=== PATIENT | male | born 1985 | race Asian ===

== ENCOUNTER 2020-05-24 05:47 | Day surgery (SDC) | payer MEDICAID ==
[2020-05-17 11:34] LABS: BASOPHILS # (AUTO) 0.1 X10'3 (0-0.2); EOSINOPHILS # (AUTO) 0.2 X10'3 (0-0.9); EOSINOPHILS % (AUTO) 3.1 % (0-6); LYMPHOCYTES # (AUTO) 2.4 X10'3 (1.1-4.8); LYMPHOCYTES % (AUTO) 38.7 % (21-51); MEAN CORPUSCULAR HEMOGLOBIN 29.5 PG (27.0-31.0); MEAN CORPUSCULAR HGB CONC 33.3 g/dL (33.0-36.5); MEAN CORPUSCULAR VOLUME 88.5 FL (78-98); MONOCYTES # (AUTO) 0.6 X10'3 (0-0.9); MONOCYTES % (AUTO) 9.3 % (2-12); NEUTROPHILS % (AUTO) 47.9 % (42-75); PRE OP PLATELET COUNT 285 X10'3 (140-440); RED BLOOD COUNT 5.77 X10'6 (4.70-6.10); RED CELL DISTRIBUTION WIDTH 14.2 % (11.5-14.5)
[2020-05-17 11:48] LABS: ALBUMIN 4.4 G/DL (3.4-5.0); ALKALINE PHOSPHATASE 80 IU/L (46-116); BLOOD UREA NITROGEN 19 MG/DL (7-18); BUN/CREATININE RATIO 19.4 (5.4-32.0); CALCIUM 9.2 MG/DL (8.5-10.1); CHLORIDE 103 MMOL/L (99-107); CREATININE 0.98 MG/DL (0.60-1.10); PRE OP ANION GAP 7 (8-16); PRE OP AST 60 U/L (10-37); PRE OP BILIRUB, TOTAL 0.9 MG/DL (0.0-1.0); PRE OP GLUCOSE 98 MG/DL (70-104); PRE OP POTASSIUM 4.2 MMOL/L (3.4-5.1); PRE OP SODIUM 139 MMOL/L (135-145); TOTAL CARBON DIOXIDE 29.3 MMOL/L (24-32); TOTAL PROTEIN 8.6 G/DL (6.4-8.2); eGFR 88 ML/MIN
[2020-05-17 11:51] LABS: PRE OP ALT 140 U/L (30-65)
[~2020-05-24] VITALS: Ht 172.7 cm; Wt 95.3 kg
[2020-05-24] VITALS (9 sets, daily range): BP systolic 116–133; BP diastolic 67–94
[~2020-05-24 05:47] MED LIST: NO HOME MEDS; ceFAZolin 2gm in dextrose, iso 50 ML IV ONE; famotidine 20mg tablet PO ONE; ringers solution, lacted 1,000 ML IV SCH
[2020-05-24] MEDS ORDERED: morphine 4 MG/ML inj SYRINge IV PRN (08:15)
[2020-05-24] MEDS ORDERED: ringers solution, lacted 1,000 ML IV SCH (08:15)
[2020-05-24] MEDS ORDERED: morphine 2 MG/ML inj. syringe IV PRN (08:15)
[2020-05-24] MEDS ORDERED: ondansetron/PF 4mg/2ml inj IV PRN (08:15)
[2020-05-24] MEDS ORDERED: proCHLORperazine 10 MG/2 ml inj IV PRN (08:15)
[2020-05-24] MEDS ORDERED: meperidine/PF 25mg/ml syringe IV PRN ×3 (08:15)
[2020-05-24] MEDS ORDERED: fentaNYL/PF 50MCG/1 ML 2ML syringe ONE ×2 (09:25→10:07)
[2020-05-24] MEDS ORDERED: midazolam 2 mg/2 ml injection ONE (09:25)
[2020-05-24] MEDS ORDERED: propofol inj 20 ML IV ONE (09:26)
[2020-05-24] MEDS ORDERED: ROPIVAcaine 0.5% (5mg/ml) 30ml vial ONE (09:29)
[2020-05-24] MEDS ORDERED: sevoflurane 250ml liquid IH ONE (09:31)
[2020-05-24] MEDS ORDERED: rocuronium 10mg/ml inj IV ONE (10:55)
--- NOTE | 2020-05-24 11:10 | NUR ---
Received from OR via BED, accompanied by Anesthesiologist DR AGUIRRE and report given by Anesthesiolgist. PATIENT A&OX4, DENIES PAIN, V/S WNL, NEUROVASCULAR CHECKS INTACT, 20G PIV LUE, SCD ON, DRESSING TO LEFT KNEE CDI W/ BRACE ELEVATED WITH ICEBAG APPLIED.
--- NOTE | 2020-05-24 12:10 | NUR ---
PATIENT A&OX4, DENIES PAIN, V/S WNL, NEUROVASCULAR CHECKS INTACT, 20G PIV LUE D/C, SCD OFF, DRESSING TO LEFT KNEE CDI W/ BRACE ELEVATED WITH ICEBAG APPLIED. I HAVE REVIEWED D/C INSTRUCTIONS WITH PATIENT AND FAMILY AND THEY HAVE VERBALIZED UNDERSTANDING. PATIENT D/C HOME WITH ALL BELONGINGS AND FAMILY GAVE TRANSPORT HOME.
== END 2020-05-24 12:10 | disposition home or self-care (01) ==
LOC: PAS 05:47
PROVIDERS: ATTEND Orthopaedic Surgery
DX: S86.812A Strain of other muscle(s) and tendon(s) at lower leg level, left leg, initial encounter (principal); I10 Essential (primary) hypertension; E66.9 Obesity, unspecified; Z68.30 Body mass index [BMI] 30.0-30.9, adult; G89.18 Other acute postprocedural pain; Z20.822 Contact with and (suspected) exposure to COVID-19; Z79.899 Other long term (current) drug therapy; Z72.89 Other problems related to lifestyle; X58.XXXA Exposure to other specified factors, initial encounter; Y93.89 Activity, other specified; Y92.89 Other specified places as the place of occurrence of the external cause; Y99.8 Other external cause status
CPT/HCPCS: 27381; 36415; 64447; 76942; 80053; 82948; 85025; 87635; 93005; J2175; J2250; J2704; J3010; J7120; A4618; A6449; A7000; J2795

== ENCOUNTER 2021-02-15 17:41 | Inpatient (IN) | payer MEDICAID ==
[~2021-02-15] VITALS: Ht 172.7 cm; Wt 94.0 kg
[~2021-02-15 17:41] MED LIST changes: -ceFAZolin 2gm in dextrose, iso 50 ML IV ONE; -famotidine 20mg tablet PO ONE; -ringers solution, lacted 1,000 ML IV SCH
--- NOTE | 2021-02-15 17:56 | NUR ---
PT MOTHER DEMIAN [phone] OK TO GIVE INFO TO
[2021-02-15 19:17] LABS: BASOPHILS % (AUTO) 0.5 % (0-1); EOSINOPHILS % (AUTO) 0 % (0-6); HEMATOCRIT 48.7 % (42.0-52.0); HEMOGLOBIN 16.9 g/dl (14.0-17.9); LYMPHOCYTES # (AUTO) 1.1 X10'3 (1.1-4.8); LYMPHOCYTES % (AUTO) 15.7 % (21-51); MEAN CORPUSCULAR HGB CONC 34.6 g/dL (33.0-36.5); MEAN CORPUSCULAR VOLUME 89.5 FL (78-98); MEAN PLATELET VOLUME 7.5 FL (7.4-10.4); MONOCYTES # (AUTO) 0.6 X10'3 (0-0.9); MONOCYTES % (AUTO) 8.7 % (2-12); NEUTROPHILS # (AUTO) 5.2 X10'3 (1.8-7.7); NEUTROPHILS % (AUTO) 75.1 % (42-75); PLATELET COUNT 268 X10'3 (140-440); RED BLOOD COUNT 5.44 X10'6 (4.70-6.10); RED CELL DISTRIBUTION WIDTH 13.9 % (11.5-14.5); WHITE BLOOD COUNT 6.9 X10'3 (4.5-11.0)
[2021-02-15 19:30] LABS: D-DIMER 0.94 MG/L FEU (0-0.50)
[2021-02-15] MEDS ORDERED: REMDESIVIR INJ 200 MG in normal saline 100ml IV soln 60 ML IV ONE (20:15)
[2021-02-15 20:26] LABS: ALANINE AMINOTRANSFERASE 169 U/L (12-78); ALBUMIN 3.6 G/DL (3.4-5.0); ALBUMIN/GLOBULIN RATIO 0.7 (1.1-1.5); ALKALINE PHOSPHATASE 91 IU/L (46-116); ANION GAP 13 (8-16); ASPARTATE AMINO TRANSFERASE 158 U/L (10-37); BLOOD UREA NITROGEN 24 MG/DL (7-18); BUN/CREATININE RATIO 17.6 (5.4-32.0); CALCIUM 8.8 MG/DL (8.5-10.1); CHLORIDE 101 MMOL/L (99-107); CREATININE 1.36 MG/DL (0.60-1.10); GLUCOSE 102 MG/DL (70-104); POTASSIUM 4.5 MMOL/L (3.5-5.1); SODIUM 140 MMOL/L (135-145); TOTAL CARBON DIOXIDE 26.5 MMOL/L (24-32); TOTAL PROTEIN 8.7 G/DL (6.4-8.2); eGFR 60 ML/MIN
[2021-02-15 20:36] LABS: TROPONIN I < 0.04 NG/ML (0.0-0.05)
[2021-02-15] MEDS ORDERED: ondansetron/PF 4mg/2ml inj IV PRN (22:00)
[2021-02-15] MEDS ORDERED: acetaminophen 325mg tablet PO PRN (22:00)
[2021-02-15] MEDS ORDERED: magnesium hydroxide 30ml (MOM) UD suspension PO PRN (22:00)
[2021-02-15] MEDS ORDERED: mag hydrox/Alum hydrox/simeth 30ml oral suspension PO PRN (22:00)
[2021-02-16] MEDS: normal saline 1000ml 1,000 ML IV SCH (00:31)
[2021-02-16] MEDS: enoxaparin 60mg/0.6ml syringe SUBCUT SCH ×2 (00:31→07:49)
[2021-02-16 01:45] VITALS: BP 113/68
--- NOTE | 2021-02-16 01:45 | NUR ---
PT ARRIVED FROM ER. PT AMBULATED TO THE BED FROM [facility]. PT HAS BEEN ORIENTED TO THE ROOM AND CALL LIGHT GIVEN. O2 94% AT 6L. RECEIVED REPORT FROM BUSTER GUERRERO PRIOR TO ARRIVAL.
[2021-02-16] MEDS: dexamethasone 4mg/ml inj IV SCH ×4 (02:05→19:48)
[2021-02-16 06:00] VITALS: BP 106/63
--- NOTE | 2021-02-16 06:20 | NUR ---
RECEIVED REPORT FROM BUSTER STINSON
--- NOTE | 2021-02-16 06:35 | NUR ---
Problems reprioritized. Patient report given, questions answered & plan of care reviewed with BUSTER ANSARI.
[2021-02-16] MEDS: metoprolol tartrate 12.5mg (1/2 tablet) PO SCH ×2 (07:49→19:47)
[2021-02-16] MEDS: docusate sod 100mg capsule PO SCH ×3 (07:49→19:39)
[2021-02-16] MEDS: REMDESIVIR 100 MG in NS 100ml IVPB IV SCH (07:50)
[2021-02-16 08:36] LABS: BASOPHILS % (AUTO) 0.6 % (0-1); EOSINOPHILS % (AUTO) 0 % (0-6); HEMATOCRIT 46.2 % (42.0-52.0); LYMPHOCYTES # (AUTO) 0.6 X10'3 (1.1-4.8); LYMPHOCYTES % (AUTO) 10.7 % (21-51); MEAN CORPUSCULAR HEMOGLOBIN 30.9 PG (27.0-31.0); MEAN CORPUSCULAR HGB CONC 34.6 g/dL (33.0-36.5); MEAN CORPUSCULAR VOLUME 89.5 FL (78-98); MEAN PLATELET VOLUME 7.8 FL (7.4-10.4); MONOCYTES # (AUTO) 0.4 X10'3 (0-0.9); MONOCYTES % (AUTO) 6.8 % (2-12); NEUTROPHILS # (AUTO) 4.5 X10'3 (1.8-7.7); NEUTROPHILS % (AUTO) 81.9 % (42-75); PLATELET COUNT 275 X10'3 (140-440); RED BLOOD COUNT 5.17 X10'6 (4.70-6.10); RED CELL DISTRIBUTION WIDTH 13.8 % (11.5-14.5); WHITE BLOOD COUNT 5.5 X10'3 (4.5-11.0)
[2021-02-16 08:53] LABS: ALANINE AMINOTRANSFERASE 144 U/L (12-78); ALBUMIN 2.9 G/DL (3.4-5.0); ALBUMIN/GLOBULIN RATIO 0.6 (1.1-1.5); ALKALINE PHOSPHATASE 87 IU/L (46-116); ANION GAP 12 (8-16); ASPARTATE AMINO TRANSFERASE 120 U/L (10-37); BILIRUBIN,TOTAL 0.9 MG/DL (0.1-1.0); BLOOD UREA NITROGEN 23 MG/DL (7-18); CALCIUM 7.9 MG/DL (8.5-10.1); CHLORIDE 103 MMOL/L (99-107); GLUCOSE 122 MG/DL (70-104); POTASSIUM 4.7 MMOL/L (3.5-5.1); SODIUM 140 MMOL/L (135-145); TOTAL CARBON DIOXIDE 24.8 MMOL/L (24-32); TOTAL PROTEIN 7.6 G/DL (6.4-8.2); eGFR 85 ML/MIN
[2021-02-16 09:36] LABS: C-REACTIVE PROTEIN 2.18 MG/DL (0.0-0.5)
[2021-02-16 09:52] LABS: FERRITIN 4178 NG/ML (26-388)
[2021-02-16 10:00] VITALS: BP 120/71
--- NOTE | 2021-02-16 18:21 | NUR ---
gave report to shayy fontanez
[2021-02-17 02:00] VITALS: BP 113/68
[2021-02-17] MEDS: dexamethasone 4mg/ml inj IV SCH ×4 (02:12→19:15)
--- NOTE | 2021-02-17 06:23 | NUR ---
Problems reprioritized. Patient report given, questions answered & plan of care reviewed with Suze GOINS.
[2021-02-17 06:52] VITALS: BP 119/66
[2021-02-17 07:44] LABS: BASOPHILS % (AUTO) 0.1 % (0-1); EOSINOPHILS % (AUTO) 0 % (0-6); HEMATOCRIT 46.9 % (42.0-52.0); HEMOGLOBIN 15.6 g/dl (14.0-17.9); LYMPHOCYTES # (AUTO) 0.8 X10'3 (1.1-4.8); LYMPHOCYTES % (AUTO) 12.5 % (21-51); MEAN CORPUSCULAR HEMOGLOBIN 30.2 PG (27.0-31.0); MEAN CORPUSCULAR HGB CONC 33.3 g/dL (33.0-36.5); MEAN CORPUSCULAR VOLUME 90.5 FL (78-98); MEAN PLATELET VOLUME 7.8 FL (7.4-10.4); MONOCYTES # (AUTO) 0.6 X10'3 (0-0.9); MONOCYTES % (AUTO) 9.7 % (2-12); NEUTROPHILS # (AUTO) 4.7 X10'3 (1.8-7.7); NEUTROPHILS % (AUTO) 77.7 % (42-75); PLATELET COUNT 333 X10'3 (140-440); RED BLOOD COUNT 5.18 X10'6 (4.70-6.10); RED CELL DISTRIBUTION WIDTH 13.9 % (11.5-14.5); WHITE BLOOD COUNT 6.1 X10'3 (4.5-11.0)
[2021-02-17] MEDS: REMDESIVIR 100 MG in NS 100ml IVPB IV SCH (07:48)
[2021-02-17] MEDS: metoprolol tartrate 12.5mg (1/2 tablet) PO SCH ×2 (07:49→19:15)
[2021-02-17] MEDS: enoxaparin 60mg/0.6ml syringe SUBCUT SCH (07:49)
[2021-02-17] MEDS: docusate sod 100mg capsule PO SCH ×2 (07:50→19:16)
[2021-02-17 07:52] LABS: ALANINE AMINOTRANSFERASE 142 U/L (12-78); ALBUMIN/GLOBULIN RATIO 0.7 (1.1-1.5); ALKALINE PHOSPHATASE 75 IU/L (46-116); ANION GAP 11 (8-16); ASPARTATE AMINO TRANSFERASE 79 U/L (10-37); BILIRUBIN,TOTAL 0.9 MG/DL (0.1-1.0); BLOOD UREA NITROGEN 23 MG/DL (7-18); BUN/CREATININE RATIO 25.6 (5.4-32.0); CALCIUM 8.6 MG/DL (8.5-10.1); CHLORIDE 106 MMOL/L (99-107); GLUCOSE 158 MG/DL (70-104); POTASSIUM 4.4 MMOL/L (3.5-5.1); SODIUM 143 MMOL/L (135-145); TOTAL CARBON DIOXIDE 25.6 MMOL/L (24-32); TOTAL PROTEIN 7.5 G/DL (6.4-8.2); eGFR > 90 ML/MIN
[2021-02-17 09:51] VITALS: BP 112/62
[2021-02-17 13:03] LABS: D-DIMER 0.68 MG/L FEU (0-0.50)
[2021-02-17 18:00] VITALS: BP 111/65
[2021-02-17 22:00] VITALS: BP 109/64
[2021-02-17] MEDS: normal saline 1000ml 1,000 ML IV SCH (22:00)
--- NOTE | 2021-02-17 23:14 | NUR ---
Patient in room ORTHO 4024. I have received report from Shaye GOINS and had the opportunity to ask questions and assume patient care.
[2021-02-18] MEDS: dexamethasone 4mg/ml inj IV SCH ×4 (01:08→19:21)
[2021-02-18 02:00] VITALS: BP 106/58
--- NOTE | 2021-02-18 06:20 | NUR ---
Problems reprioritized. Patient report given, questions answered & plan of care reviewed with Margarita RN at bedside.
[2021-02-18 06:30] VITALS: BP 106/57
--- NOTE | 2021-02-18 06:48 | NUR ---
Patient in room ORTHO 4024. I have received report from estee lucas and had the opportunity to ask questions and assume patient care.
[2021-02-18] MEDS: enoxaparin 60mg/0.6ml syringe SUBCUT SCH (07:21)
[2021-02-18] MEDS: REMDESIVIR 100 MG in NS 100ml IVPB IV SCH (07:21)
[2021-02-18] MEDS: docusate sod 100mg capsule PO SCH ×2 (07:21→19:21)
[2021-02-18] MEDS: metoprolol tartrate 12.5mg (1/2 tablet) PO SCH ×2 (07:38→19:21)
[2021-02-18 07:57] LABS: BASOPHILS % (AUTO) 0.1 % (0-1); EOSINOPHILS % (AUTO) 0 % (0-6); HEMATOCRIT 47.6 % (42.0-52.0); LYMPHOCYTES # (AUTO) 0.7 X10'3 (1.1-4.8); LYMPHOCYTES % (AUTO) 7.4 % (21-51); MEAN CORPUSCULAR HEMOGLOBIN 30.8 PG (27.0-31.0); MEAN CORPUSCULAR HGB CONC 33.6 g/dL (33.0-36.5); MEAN CORPUSCULAR VOLUME 91.4 FL (78-98); MEAN PLATELET VOLUME 7.6 FL (7.4-10.4); MONOCYTES # (AUTO) 0.7 X10'3 (0-0.9); MONOCYTES % (AUTO) 7.2 % (2-12); NEUTROPHILS # (AUTO) 8.6 X10'3 (1.8-7.7); NEUTROPHILS % (AUTO) 85.3 % (42-75); PLATELET COUNT 415 X10'3 (140-440); RED BLOOD COUNT 5.21 X10'6 (4.70-6.10); WHITE BLOOD COUNT 10.1 X10'3 (4.5-11.0)
[2021-02-18] MEDS ORDERED: ALBUTEROL INHALER 1 PUFF/90 MCG INHALER IH PRN (08:30)
[2021-02-18 08:33] LABS: ALANINE AMINOTRANSFERASE 146 U/L (12-78); ALBUMIN 3.1 G/DL (3.4-5.0); ALBUMIN/GLOBULIN RATIO 0.7 (1.1-1.5); ALKALINE PHOSPHATASE 76 IU/L (46-116); ANION GAP 13 (8-16); ASPARTATE AMINO TRANSFERASE 66 U/L (10-37); BILIRUBIN,TOTAL 0.9 MG/DL (0.1-1.0); BLOOD UREA NITROGEN 25 MG/DL (7-18); BUN/CREATININE RATIO 23.6 (5.4-32.0); C-REACTIVE PROTEIN 0.45 MG/DL (0.0-0.5); CALCIUM 8.7 MG/DL (8.5-10.1); CHLORIDE 107 MMOL/L (99-107); CREATININE 1.06 MG/DL (0.60-1.10); GLUCOSE 150 MG/DL (70-104); POTASSIUM 4.8 MMOL/L (3.5-5.1); SODIUM 146 MMOL/L (135-145); TOTAL CARBON DIOXIDE 25.6 MMOL/L (24-32); TOTAL PROTEIN 7.6 G/DL (6.4-8.2); eGFR 80 ML/MIN
[2021-02-18 09:39] VITALS: BP 116/75
[2021-02-18] MEDS: normal saline 1000ml 1,000 ML IV SCH (13:28)
[2021-02-18 18:00] VITALS: BP 125/75
[2021-02-19] MEDS: dexamethasone 4mg/ml inj IV SCH ×4 (01:48→19:26)
[2021-02-19 02:00] VITALS: BP 118/71
[2021-02-19 06:17] VITALS: BP 117/72
--- NOTE | 2021-02-19 06:26 | NUR ---
Patient in room ORTHO 4024. I have received report from roshan lucas and had the opportunity to ask questions and assume patient care.
--- NOTE | 2021-02-19 06:31 | NUR ---
Problems reprioritized. Patient report given, questions answered & plan of care reviewed with CAROL GOINS.
[2021-02-19] MEDS: metoprolol tartrate 12.5mg (1/2 tablet) PO SCH (06:35)
[2021-02-19] MEDS: REMDESIVIR 100 MG in NS 100ml IVPB IV SCH (07:37)
[2021-02-19] MEDS: enoxaparin 60mg/0.6ml syringe SUBCUT SCH (07:37)
[2021-02-19] MEDS: docusate sod 100mg capsule PO SCH ×2 (07:47→19:23)
[2021-02-19 08:10] LABS: BASOPHILS % (AUTO) 0.1 % (0-1); EOSINOPHILS % (AUTO) 0 % (0-6); HEMATOCRIT 45.9 % (42.0-52.0); HEMOGLOBIN 15.7 g/dl (14.0-17.9); LYMPHOCYTES # (AUTO) 0.8 X10'3 (1.1-4.8); LYMPHOCYTES % (AUTO) 7.1 % (21-51); MEAN CORPUSCULAR HEMOGLOBIN 30.6 PG (27.0-31.0); MEAN CORPUSCULAR HGB CONC 34.3 g/dL (33.0-36.5); MEAN CORPUSCULAR VOLUME 89.3 FL (78-98); MEAN PLATELET VOLUME 7.1 FL (7.4-10.4); MONOCYTES # (AUTO) 0.8 X10'3 (0-0.9); MONOCYTES % (AUTO) 7.3 % (2-12); NEUTROPHILS # (AUTO) 9.6 X10'3 (1.8-7.7); NEUTROPHILS % (AUTO) 85.5 % (42-75); PLATELET COUNT 412 X10'3 (140-440); RED BLOOD COUNT 5.14 X10'6 (4.70-6.10); RED CELL DISTRIBUTION WIDTH 13.5 % (11.5-14.5); WHITE BLOOD COUNT 11.3 X10'3 (4.5-11.0)
[2021-02-19 08:25] LABS: ANION GAP 9 (8-16); BILIRUBIN,TOTAL 0.9 MG/DL (0.1-1.0); BLOOD UREA NITROGEN 22 MG/DL (7-18); BUN/CREATININE RATIO 22.2 (5.4-32.0); C-REACTIVE PROTEIN 0.21 MG/DL (0.0-0.5); CALCIUM 8.4 MG/DL (8.5-10.1); CHLORIDE 108 MMOL/L (99-107); CREATININE 0.99 MG/DL (0.60-1.10); GLUCOSE 150 MG/DL (70-104); POTASSIUM 4.7 MMOL/L (3.5-5.1); SODIUM 143 MMOL/L (135-145); TOTAL CARBON DIOXIDE 25.6 MMOL/L (24-32); TOTAL PROTEIN 7.1 G/DL (6.4-8.2); eGFR 86 ML/MIN
[2021-02-19 08:26] LABS: ALANINE AMINOTRANSFERASE 135 U/L (12-78); ALBUMIN/GLOBULIN RATIO 0.7 (1.1-1.5); ALKALINE PHOSPHATASE 69 IU/L (46-116); ASPARTATE AMINO TRANSFERASE 45 U/L (10-37)
[2021-02-19 10:00] VITALS: BP 115/66
--- NOTE | 2021-02-19 11:26 | NUR ---
Initial: Pt admit for acute respiratory failure with hypoxia and COVID PNA. Currently on a regular diet and initially eating poorly with 0-25% PO intake however with average 75% PO intake at four most recent meals meeting 100% estimated energy needs and 82% estimated protein needs for IBW as current documented wt isn't scaled. See recommendations below that were d/w dietary to provide additional protein. LBM 02/16, receiving routine bowel care though pt refuses at times. Additional PRN bowel care is available. Will continue to follow and monitor need for further nutrition intervention. Recommendations: 1) Continue regular diet 2) Trial yogurt WB, smoothie WL, and shake WS for additional protein; monitor need for ONS 3) Routine bowel care 4) Scaled weight this admit; weekly scaled weights thereafter Addendum: 02/19/21 at [address] Amended: Links added.
[2021-02-19 14:26] VITALS: BP 125/66
[2021-02-19 17:56] VITALS: BP 122/74
--- NOTE | 2021-02-19 18:25 | NUR ---
Problems reprioritized. Patient report given, questions answered & plan of care reviewed with estee lucas.
[2021-02-19] MEDS: normal saline 1000ml 1,000 ML IV SCH (21:52)
[2021-02-19 22:00] VITALS: BP 116/59
[2021-02-20] MEDS: dexamethasone 4mg/ml inj IV SCH ×4 (01:45→20:37)
[2021-02-20 02:00] VITALS: BP 121/68
[2021-02-20 06:00] VITALS: BP 111/69
--- NOTE | 2021-02-20 06:30 | NUR ---
Patient in room ORTHO 4024A. I have received report from BUSTER GEIGER and had the opportunity to ask questions and assume patient care.
[2021-02-20] MEDS: docusate sod 100mg capsule PO SCH ×2 (07:07→20:00)
[2021-02-20] MEDS: enoxaparin 60mg/0.6ml syringe SUBCUT SCH (07:11)
[2021-02-20 07:43] LABS: BASOPHILS % (AUTO) 0.2 % (0-1); EOSINOPHILS % (AUTO) 0 % (0-6); HEMATOCRIT 47.8 % (42.0-52.0); HEMOGLOBIN 16.1 g/dl (14.0-17.9); LYMPHOCYTES # (AUTO) 0.7 X10'3 (1.1-4.8); MEAN CORPUSCULAR HEMOGLOBIN 30.8 PG (27.0-31.0); MEAN CORPUSCULAR HGB CONC 33.6 g/dL (33.0-36.5); MEAN CORPUSCULAR VOLUME 91.7 FL (78-98); MEAN PLATELET VOLUME 7.5 FL (7.4-10.4); MONOCYTES # (AUTO) 0.8 X10'3 (0-0.9); MONOCYTES % (AUTO) 6.4 % (2-12); NEUTROPHILS # (AUTO) 10.8 X10'3 (1.8-7.7); NEUTROPHILS % (AUTO) 87.4 % (42-75); PLATELET COUNT 434 X10'3 (140-440); RED BLOOD COUNT 5.22 X10'6 (4.70-6.10); RED CELL DISTRIBUTION WIDTH 13.7 % (11.5-14.5); WHITE BLOOD COUNT 12.4 X10'3 (4.5-11.0)
[2021-02-20 07:45] LABS: D-DIMER 0.63 MG/L FEU (0-0.50)
[2021-02-20 07:56] LABS: CHLORIDE 107 MMOL/L (99-107); GLUCOSE 147 MG/DL (70-104); POTASSIUM 4.7 MMOL/L (3.5-5.1); SODIUM 143 MMOL/L (135-145); TOTAL CARBON DIOXIDE 25.7 MMOL/L (24-32)
[2021-02-20 07:57] LABS: ALANINE AMINOTRANSFERASE 146 U/L (12-78); ALBUMIN 3.1 G/DL (3.4-5.0); ALBUMIN/GLOBULIN RATIO 0.8 (1.1-1.5); ALKALINE PHOSPHATASE 68 IU/L (46-116); ANION GAP 10 (8-16); ASPARTATE AMINO TRANSFERASE 59 U/L (10-37); BILIRUBIN,TOTAL 0.9 MG/DL (0.1-1.0); BLOOD UREA NITROGEN 20 MG/DL (7-18); BUN/CREATININE RATIO 19.6 (5.4-32.0); C-REACTIVE PROTEIN 0.11 MG/DL (0.0-0.5); CALCIUM 8.4 MG/DL (8.5-10.1); CREATININE 1.02 MG/DL (0.60-1.10); TOTAL PROTEIN 7.2 G/DL (6.4-8.2); eGFR 83 ML/MIN
[2021-02-20 10:00] VITALS: BP 113/67
[2021-02-20 14:00] VITALS: BP 100/70
[2021-02-20 18:00] VITALS: BP 127/73
--- NOTE | 2021-02-20 18:56 | NUR ---
Problems reprioritized. Patient report given, questions answered & plan of care reviewed with BUSTER Valdes.
[2021-02-20 22:00] VITALS: BP 105/59
[2021-02-21 02:00] VITALS: BP 107/62
[2021-02-21] MEDS: dexamethasone 4mg/ml inj IV SCH ×2 (03:26→08:39)
[2021-02-21 06:00] VITALS: BP 113/64
--- NOTE | 2021-02-21 06:31 | NUR ---
Patient in room ORTHO 4024B. I have received report from BUSTER FAROOQ and had the opportunity to ask questions and assume patient care.
[2021-02-21 07:36] LABS: BASOPHILS % (AUTO) 0.1 % (0-1); EOSINOPHILS % (AUTO) 0 % (0-6); HEMATOCRIT 47.4 % (42.0-52.0); HEMOGLOBIN 16.2 g/dl (14.0-17.9); LYMPHOCYTES # (AUTO) 0.7 X10'3 (1.1-4.8); LYMPHOCYTES % (AUTO) 5.1 % (21-51); MEAN CORPUSCULAR HEMOGLOBIN 30.6 PG (27.0-31.0); MEAN CORPUSCULAR HGB CONC 34.1 g/dL (33.0-36.5); MEAN CORPUSCULAR VOLUME 89.6 FL (78-98); MEAN PLATELET VOLUME 7.6 FL (7.4-10.4); MONOCYTES # (AUTO) 0.7 X10'3 (0-0.9); MONOCYTES % (AUTO) 4.7 % (2-12); NEUTROPHILS # (AUTO) 13.1 X10'3 (1.8-7.7); NEUTROPHILS % (AUTO) 90.1 % (42-75); PLATELET COUNT 461 X10'3 (140-440); RED BLOOD COUNT 5.29 X10'6 (4.70-6.10); WHITE BLOOD COUNT 14.5 X10'3 (4.5-11.0)
[2021-02-21 07:43] LABS: D-DIMER 0.42 MG/L FEU (0-0.50)
[2021-02-21 08:06] LABS: ALANINE AMINOTRANSFERASE 179 U/L (12-78); ALBUMIN/GLOBULIN RATIO 0.8 (1.1-1.5); ALKALINE PHOSPHATASE 64 IU/L (46-116); ANION GAP 13 (8-16); ASPARTATE AMINO TRANSFERASE 79 U/L (10-37); BILIRUBIN,TOTAL 0.8 MG/DL (0.1-1.0); BLOOD UREA NITROGEN 22 MG/DL (7-18); BUN/CREATININE RATIO 23.4 (5.4-32.0); CALCIUM 8.4 MG/DL (8.5-10.1); CHLORIDE 107 MMOL/L (99-107); CREATININE 0.94 MG/DL (0.60-1.10); GLUCOSE 146 MG/DL (70-104); POTASSIUM 4.4 MMOL/L (3.5-5.1); SODIUM 143 MMOL/L (135-145); TOTAL CARBON DIOXIDE 22.8 MMOL/L (24-32); TOTAL PROTEIN 6.9 G/DL (6.4-8.2); eGFR > 90 ML/MIN
[2021-02-21 08:09] LABS: C-REACTIVE PROTEIN < 0.05 MG/DL (0.0-0.5)
[2021-02-21] MEDS: docusate sod 100mg capsule PO SCH (08:39)
[2021-02-21] MEDS: enoxaparin 60mg/0.6ml syringe SUBCUT SCH (08:40)
[2021-02-21 10:00] VITALS: BP 111/68
--- NOTE | 2021-02-21 11:07 | NUR ---
O2 Sat at rest on room air:_89__% If below 89%: Recovery O2 Sat at rest on _2__LPM:_92__%via_NASAL CANULA__(mask/nasal cannula, etc..) No further documentation is necessary. If O2 Sat did not drop below 89% on room air,ambulate patient on room air. O2 Sat while ambulating on room air:_86__% Recovery O2 Sat while ambulating on __4_LPM:__90_% No further documentation is necessary. If patient does not drop below 89% while ambulating, he/she does not qualify for home O2.
[2021-02-21] MEDS ORDERED: DEXA2TAB PO (11:41)
[2021-02-21] MEDS ORDERED: ASPI-107 PO (11:41)
[2021-02-21] MEDS ORDERED: ALBU6.7H9 IH (11:41)
--- NOTE | 2021-02-21 13:23 | NUR ---
Page Sent PAGER ID: [phone] MESSAGE: JUD [id number]: [id number] BRETT MONTIEL...PT WOULD LIKE THE COVID VACCINE, CAN I GET AN ORDER? Addendum: 02/21/21 at 1325 by Jud Parks RN PER , PT NEEDS TO WAIT A FEW WEEKS BEFORE THE VACCINE.
--- NOTE | 2021-02-21 16:16 | NUR ---
DC INSTRUCTIONS GIVEN, QUESTIONS ANSWERED. O2 INSTRUCTIONS GIVEN. IV REMOVED, TELE MONITOR REMOVED. GATHERED BELONGINGS. PT WHEELED DOWN TO PRIVATE VEHICLE IN STABLE CONDITION
== END 2021-02-21 14:40 | disposition home or self-care (01) | DRG 137 ==
LOC: ER 17:41 → ED HOLD 22:01 → ORTHO 4S 02-16 01:30
PROVIDERS: ADMIT Internal Medicine; ATTEND Family Medicine
PROC: XW033E5 Introduction of Remdesivir Anti-infective into Peripheral Vein, Percutaneous Approach, New Technology Group 5 (ICD-10-PCS; principal; 2021-02-15)
PROC: 5A0935A Assistance with Respiratory Ventilation, Less than 24 Consecutive Hours, High Flow/Velocity Cannula (ICD-10-PCS; 2021-02-19)
PROC: 5A0935A Assistance with Respiratory Ventilation, Less than 24 Consecutive Hours, High Flow/Velocity Cannula (ICD-10-PCS; 2021-02-20)
PROC: 5A0935A Assistance with Respiratory Ventilation, Less than 24 Consecutive Hours, High Flow/Velocity Cannula (ICD-10-PCS; 2021-02-21)
DX: U07.1 COVID-19 (principal); J96.01 Acute respiratory failure with hypoxia; J12.82 Pneumonia due to coronavirus disease 2019; I10 Essential (primary) hypertension; R00.1 Bradycardia, unspecified
CPT/HCPCS: 36415; 71045; 80053; 82728; 83880; 84484; 85025; 85379; 86140; 87081; 87635; 93005; 96374; 99285; C9803; G0378; J1100; J1650; J7030